=== PATIENT | female | born 1950 | race Caucasian/White ===

== ENCOUNTER 2019-07-06 07:05 | Day surgery (SDC) | payer MEDICARE, OTHER ==
[~2019-07-06] VITALS: Ht 157.5 cm; Wt 93.0 kg
[~2019-07-06 07:05] MED LIST: Furosemide20 MG PO; LEVO-T125 MC1 PO; LEVSOD75 PO; MECL12.5 PO; OMEPRAZOLE MAGN20 MG PO; Prinivil10 MG PO
--- NOTE | 2019-07-06 07:34 | NUR ---
PT STATES SHE HAS TAKEN 40 MG PO PREDNISONE YESTERDAY AND TODAY.
--- NOTE | 2019-07-06 09:45 | NUR ---
PT BACK TO RECOVERY ROOM POST PROCEDURE. SITTING UP IN A RECLINER, ALERT AND ORIENTED. DENIES DISCOMFORT. BILATERAL RADIAL SITES WITH TR BANDS AND SPLINTS IN PLACE. CALL LIGHT IN REACH.
--- NOTE | 2019-07-06 10:33 | NUR ---
PT EATING BREAKFAST AND WATCHING TV. DENIES NEEDS. VSS, CALL LIGHT IN REACH. BILATERAL RADIAL SITES C/D/I, TR BANDS AND SPLINTS IN PLACE.
--- NOTE | 2019-07-06 11:30 | NUR ---
4 CC'S OF AIR HAVE BEEN REMOVED FROM EACH TR BAND IN 2CC INCREMENTS. NO BLEEDING OR HEMATOMAS NOTED AT EITHER RADIAL SITE. PT STATES SITES ARE MORE COMFORTABLE THEY ARE BEING DEFLATED. PT CONTINUES TO WATCH TV, CALL LIGHT IN REACH.
--- NOTE | 2019-07-06 12:15 | NUR ---
BILATERAL TR BANDSHAVE BEEN FULLY DEFLATED WITHOUT ANY BLEEDING OR SWELLING AT EITHER SITE. CLOTH DOT DRESSINGS AND SPLINTS IN PLACE. IV DC'D, CATH INTACT. PT VERBALIZED UNDERSTANDING OF DC INSTRUCTIONS AND FOLLOW UP INFO. OUT TO CAR VIA W/C.
== END 2019-07-06 16:21 | disposition home or self-care (01) ==
LOC: MHTC 07:05
DX: Z01.810 Encounter for preprocedural cardiovascular examination (principal); I35.0 Nonrheumatic aortic (valve) stenosis; I25.10 Atherosclerotic heart disease of native coronary artery without angina pectoris; Z88.0 Allergy status to penicillin
CPT/HCPCS: 93454; 99152; 99153; C1769; C1894; J1200; J1644; J1720; J2250; J3010; J7030; Q9967

== ENCOUNTER 2019-09-24 20:19 | Observation (INO) | payer MEDICARE, OTHER ==
[~2019-09-24] VITALS: Ht 154.9 cm; Wt 90.5 kg
[2019-09-24] MEDS ORDERED: CLOP75 PO (20:39)
[2019-09-24 20:54] LABS: BASOPHILS ABSOLUTE AUTO 0.05 K/mm3 (0.00-0.23); BASOPHILS PERCENT AUTO 1 % (0-2); EOSINOPHILS ABSOLUTE AUTO 0.79 K/mm3 (0.00-0.68); EOSINOPHILS PERCENT AUTO 10 % (0-6); Hematocrit 42.1 % (33.0-51.0); Hemoglobin 13.4 g/dL (11.5-16.0); IMMATURE GRAN ABSOLUTE AUTO 0.04 K/mm3 (0.00-0.10); IMMATURE GRAN PERCENT AUTO 1 % (0-1); LYMPHOCYTES ABSOLUTE AUTO 2.18 K/mm3 (0.84-5.20); LYMPHOCYTES PERCENT AUTO 26 % (21-46); MONOCYTES ABSOLUTE AUTO 0.52 K/mm3 (0.16-1.47); MONOCYTES PERCENT AUTO 6 % (4-13); Mean Corpuscular HGB 30.2 pg (26.0-34.0); Mean Corpuscular HGB Conc 31.8 g/dL (31.5-36.5); Mean Corpuscular Volume 95 fL (80-100); Mean Platelet Volume 9.9 fL (9.1-12.4); NEUTROPHILS ABSOLUTE AUTO 4.76 K/mm3 (1.96-9.15); NEUTROPHILS PERCENT AUTO 57 % (41-73); Platelet Count 153 K/mm3 (150-400); RDW Standard Deviation 48.5 fL (35.1-46.3); Red Blood Cell Count 4.43 M/mm3 (3.80-5.20); White Blood Cell Count 8.34 K/mm3 (4.00-11.30)
[2019-09-24 21:15] LABS: Alanine Aminotransfer (ALT/SGP 16 U/L (12-78); Albumin, Blood 3.4 g/dL (3.4-5.0); Albumin/Globulin Ratio 0.8 (0.8-1.8); Alk Phos 91 U/L (50-136); Anion Gap 4 mmol/L (6-16); Aspartate Aminotrans (AST/SGOT 14 U/L (12-37); Bilirubin, Total 0.3 mg/dL (0.1-1.0); Blood Urea Nitrogen 9 mg/dL (8-24); CO2, Blood 26 mmol/L (21-32); Calcium, Blood 9.2 mg/dL (8.5-10.1); Chloride, Blood 112 mmol/L (98-108); Creatinine, Blood 0.75 mg/dL (0.40-1.00); Globulin, Blood 4.5 g/dL (2.2-4.0); Glomerular Filtration Rate >60 (60-); Glucose, Blood 103 mg/dL (70-99); Potassium, Blood 3.9 mmol/L (3.5-5.5); Sodium, Blood 142 mmol/L (136-145); Total Protein, Blood 7.9 g/dL (6.4-8.2); Troponin I 0.272 ng/mL (0.000-0.040)
[2019-09-25 01:39] LABS: Source, Urine Clean Catch
[2019-09-25 01:47] LABS: Appearance, Urine Clear (Clear); Blood, Urine 4+ (Neg); Color, Urine Amber (P-Yellow); Glucose Qualitative, Urine Neg (Neg); Ketones, Urine 1+ (Neg); Leukocyte Esterase, Urine 1+ (Neg); Nitrite, Urine Pos (Neg); Protein, Urine 2+ (Neg); Specific Gravity, Urine 1.025 (1.003-1.022); Urobilinogen, Urine 1+ (Normal)
[2019-09-25 01:52] LABS: Bilirubin, Urine 1+ (Neg)
[2019-09-25 01:53] LABS: Bacteria Many /hpf; Mucus Heavy (0-Heavy); Red Blood Cells, Urine 0-2 /hpf (0-2); Squamous Epithelial Cells Many /hpf (Few); White Blood Cells, Urine 25-50 /hpf (0-5)
[2019-09-25] MEDS ORDERED: ASPI81CH PO (02:51)
--- NOTE | 2019-09-25 04:28 | NUR ---
DR Camp notified of positive UA only 20 ml urine. to review, C & S pending.
[2019-09-25 04:49] LABS: BASOPHILS ABSOLUTE AUTO 0.06 K/mm3 (0.00-0.23); BASOPHILS PERCENT AUTO 1 % (0-2); EOSINOPHILS ABSOLUTE AUTO 0.92 K/mm3 (0.00-0.68); EOSINOPHILS PERCENT AUTO 11 % (0-6); Hematocrit 41.4 % (33.0-51.0); Hemoglobin 12.8 g/dL (11.5-16.0); IMMATURE GRAN ABSOLUTE AUTO 0.05 K/mm3 (0.00-0.10); IMMATURE GRAN PERCENT AUTO 1 % (0-1); LYMPHOCYTES ABSOLUTE AUTO 2.39 K/mm3 (0.84-5.20); LYMPHOCYTES PERCENT AUTO 27 % (21-46); MONOCYTES PERCENT AUTO 6 % (4-13); Mean Corpuscular HGB 29.2 pg (26.0-34.0); Mean Corpuscular HGB Conc 30.9 g/dL (31.5-36.5); Mean Corpuscular Volume 95 fL (80-100); Mean Platelet Volume 10.6 fL (9.1-12.4); NEUTROPHILS ABSOLUTE AUTO 4.81 K/mm3 (1.96-9.15); NEUTROPHILS PERCENT AUTO 55 % (41-73); Platelet Count 159 K/mm3 (150-400); RDW Coefficient Variation 14.2 % (11.7-14.2); RDW Standard Deviation 49.1 fL (35.1-46.3); Red Blood Cell Count 4.38 M/mm3 (3.80-5.20); White Blood Cell Count 8.73 K/mm3 (4.00-11.30)
[2019-09-25 05:10] LABS: Alanine Aminotransfer (ALT/SGP 19 U/L (12-78); Albumin, Blood 3.2 g/dL (3.4-5.0); Albumin/Globulin Ratio 0.7 (0.8-1.8); Alk Phos 87 U/L (50-136); Anion Gap 3 mmol/L (6-16); Aspartate Aminotrans (AST/SGOT 17 U/L (12-37); Bilirubin, Total 0.3 mg/dL (0.1-1.0); Blood Urea Nitrogen 11 mg/dL (8-24); Bun/Creatinine Ratio 16.7 (12.0-20.0); CO2, Blood 26 mmol/L (21-32); Calcium, Blood 8.9 mg/dL (8.5-10.1); Chloride, Blood 113 mmol/L (98-108); Creatinine, Blood 0.66 mg/dL (0.40-1.00); Globulin, Blood 4.4 g/dL (2.2-4.0); Glomerular Filtration Rate >60 (60-); Glucose, Blood 103 mg/dL (70-99); Sodium, Blood 142 mmol/L (136-145); Total Protein, Blood 7.6 g/dL (6.4-8.2)
[2019-09-25 05:12] LABS: CPK Creatine Kinase 75 U/L (26-193)
--- NOTE | 2019-09-25 05:53 | NUR ---
69 year old Female with TIA sx at home while watching TV with rt arm weakness arrives to floor with some speech slurring & she has a foam corner of rt mouth when drinking water. Alert active ambulates self to bathroom to void x 2 . First void only 20 ml cloudy celi urine sent for UA with C & S pending. 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. See card in chart for valve replacement. PT is lifeline smoker quit for 5 years but continues to smoke 3 cigarettes daily. She has hx of [place] plasy with baseline lt facial droop. PT has very dark eyes & difficult to assess pupilary reaction. Hx of vetigo & had steroid taper in last 3 months. Phoned MD to discuss positive UA. HAd positive troponin in ER & serial troponins continue.
[2019-09-25 06:37] LABS: CPK Creatine Kinase 67 U/L (26-193)
--- NOTE | 2019-09-25 13:13 | NUR ---
Echocardiogram using 9.0ml of Definity contrast performed.
--- NOTE | 2019-09-25 18:49 | NUR ---
SHIFT SUMMARY JAYANT'S NEURO CHECKS WERE NROMAL THIS SHIFT. DENIES UTI S/S. HAD ECHO AND CAROTID DOPLER. TELE SHOWING NSR. DENIED PAIN. INDEP IN ROOM. PLAN TO GO HOME TOMORROW AFTER ZIO MONITOR PLACED. WCTM
--- NOTE | 2019-09-26 06:47 | NUR ---
PT continues with no residual effect after TIA post TAVR placement 08/23/2019. PT willing to discuss tobacco addiction & stress related to widowhood & significant other causing stress. 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 Up & showered. Lorazapam at HS for restful nights sleep.
--- NOTE | 2019-09-26 09:10 | NUR ---
PT PLEASANT A/O X3. DENIES PAIN. STATES SOME OCC SILVER SPOTS IN FROMNT OF EYES. DR SONG NOTIFIED WHEN IN ROOM. H/R REG, NO MURMER NOTED. PER TELE NSR WITH [facility]. RATE 96. NO EVENTS. LUNGS CLEAR, RESP EASY, UNLABORED. ON R.A. BT X4 LAST BM PER PT TODAY. VOIDS INDEPENDANT TO BATHROOM. BED IN LOW POSITION, CALL LITE IN REACH, CALLS APPROP. STATES EXPECTS TO GO HOME TODAY. AFTER ZIOPATCH PLACEMENT.
[2019-09-26] MEDS ORDERED: AMLO5 PO (13:11)
[2019-09-26] MEDS ORDERED: ATOR80 PO (13:11)
--- NOTE | 2019-09-26 14:06 | NUR ---
DISCHARGE REVIEWED WITH PT. CHANGE ON LISINOPRIL CONFIRMED WITH DR SONG. KEEP ON PT HOME DOSE 5MG. TELE REMOVED AND ZIOPATCH PLACED BY H/C. RETURNED TELE TO PCU. IV REMOVED INTACT. PTVERBALIZED UNDERSTANDING OF MEDS AND INST
--- NOTE | 2019-09-26 15:46 | NUR ---
PT OUT DOOR WITH AIDE. AT [id number]
== END 2019-09-26 15:46 | disposition home or self-care (01) ==
LOC: ER 20:19 → MEDS 20:20
PROVIDERS: Emergency Medicine; ADMIT Internal Medicine
DX: G45.9 Transient cerebral ischemic attack, unspecified (principal); I35.0 Nonrheumatic aortic (valve) stenosis; Z95.2 Presence of prosthetic heart valve; I10 Essential (primary) hypertension; E03.9 Hypothyroidism, unspecified; K21.9 Gastro-esophageal reflux disease without esophagitis; Z88.0 Allergy status to penicillin; Z88.7 Allergy status to serum and vaccine; Z91.041 Radiographic dye allergy status; Z79.02 Long term (current) use of antithrombotics/antiplatelets; Z79.899 Other long term (current) drug therapy
CPT/HCPCS: 36415; 70450; 80053; 81001; 82550; 83690; 84484; 85025; 87077; 87086; 87186; 93005; 93010; 93306; 93880; 99285-25; A9270-GY; G0378

== ENCOUNTER → 2021-09-21 | Outpatient (CLI) | payer MEDICARE, OTHER ==
[~2021-09-21] MED LIST changes: +AMLO5 PO; +ASPI81CH PO; +ATOR80 PO; +CLOP75 PO
== END | disposition home or self-care (01) ==
LOC: LAB SHORT 12:13 → PLD 12:13
DX: N85.01 Benign endometrial hyperplasia (principal)
CPT/HCPCS: 88305

== ENCOUNTER 2021-11-19 08:15 | Day surgery (SDC) | payer MEDICARE, OTHER ==
[~2021-11-19] VITALS: Ht 157.5 cm; Wt 98.4 kg
[~2021-11-19 08:15] MED LIST changes: +BUTALB-ACETAMI1 EAC7 PO; +CLOBETASOL PROP59 ML TOP; +CYCL10 PO; +Diclofenac Sodi75 MG PO; +ELIQUIS5 M2 PO; +FAMO20 PO; +Norco 5-325 Ta1 EACH PO
[2021-11-19] MEDS ORDERED: ATOR80 PO (09:01)
[2021-11-19] MEDS ORDERED: LOSA25 PO (09:01)
[2021-11-19] MEDS ORDERED: Amlodipine Bes2.5 MG PO (09:02)
[2021-11-19] MEDS ORDERED: CLOP75 PO (09:02)
[2021-11-19] MEDS ORDERED: PROG100 PO (09:03)
--- NOTE | 2021-11-19 09:48 | NUR ---
History, Chart, Medications and Allergies reviewed before start of procedure.Patient confirms NPO status and agrees with scheduled surgery. Pre-Op teaching done. Pt verbalizes understanding. Patient States Post-Procedure ride home has been arranged.
--- NOTE | 2021-11-19 11:34 | NUR ---
11/19/21 1134 Stephenie Ballesteros PATIENT ON [place] PAD.
[2021-11-19 13:53] LABS: BASOPHILS ABSOLUTE AUTO 0.04 K/mm3 (0.00-0.23); BASOPHILS PERCENT AUTO 0 % (0-2); EOSINOPHILS ABSOLUTE AUTO 0.14 K/mm3 (0.00-0.68); EOSINOPHILS PERCENT AUTO 1 % (0-6); Hematocrit 43.1 % (33.0-51.0); Hemoglobin 13.8 g/dL (11.5-16.0); IMMATURE GRAN ABSOLUTE AUTO 0.05 K/mm3 (0.00-0.10); IMMATURE GRAN PERCENT AUTO 0 % (0-1); LYMPHOCYTES ABSOLUTE AUTO 1.75 K/mm3 (0.84-5.20); LYMPHOCYTES PERCENT AUTO 12 % (21-46); MONOCYTES ABSOLUTE AUTO 0.27 K/mm3 (0.16-1.47); MONOCYTES PERCENT AUTO 2 % (4-13); Mean Corpuscular HGB 29.7 pg (26.0-34.0); Mean Corpuscular Volume 93 fL (80-100); NEUTROPHILS ABSOLUTE AUTO 13.02 K/mm3 (1.96-9.15); NEUTROPHILS PERCENT AUTO 85 % (41-73); Platelet Count 156 K/mm3 (150-400); RDW Coefficient Variation 14.5 % (11.7-14.2); Red Blood Cell Count 4.64 M/mm3 (3.80-5.20); White Blood Cell Count 15.27 K/mm3 (4.00-11.30)
--- NOTE | 2021-11-20 03:58 | NUR ---
SHIFT SUMMARY A/O X4- POD1 LAP TO OPEN HYSTER. DRESSING FOR ABDOMINAL INCISION ACROSS LOWER ABDOMEN C/D/I, BINDER IN PLACE. LAP SITES C/D/I. ARZATE REMAINS IN PLACE. PAIN MANAGED W/ PO PAIN MEDICATIONS. MEDICATED PER EMAR FOR GAS PAIN. PLAN TO GET PT OUT OF BED AND INTO CHAIR THIS AM. VITAL SIGNS STABLE. WILL CONTINUE TO MONITOR AND REPORT TO ONCOMING RN.
[2021-11-20 06:03] LABS: BASOPHILS ABSOLUTE AUTO 0.03 K/mm3 (0.00-0.23); BASOPHILS PERCENT AUTO 0 % (0-2); EOSINOPHILS ABSOLUTE AUTO 0.01 K/mm3 (0.00-0.68); EOSINOPHILS PERCENT AUTO 0 % (0-6); Hematocrit 37.4 % (33.0-51.0); Hemoglobin 12.1 g/dL (11.5-16.0); IMMATURE GRAN ABSOLUTE AUTO 0.06 K/mm3 (0.00-0.10); IMMATURE GRAN PERCENT AUTO 0 % (0-1); LYMPHOCYTES ABSOLUTE AUTO 1.87 K/mm3 (0.84-5.20); LYMPHOCYTES PERCENT AUTO 12 % (21-46); MONOCYTES ABSOLUTE AUTO 0.83 K/mm3 (0.16-1.47); MONOCYTES PERCENT AUTO 5 % (4-13); Mean Corpuscular HGB 29.7 pg (26.0-34.0); Mean Corpuscular HGB Conc 32.4 g/dL (31.5-36.5); Mean Corpuscular Volume 92 fL (80-100); Mean Platelet Volume 10.3 fL (9.1-12.4); NEUTROPHILS PERCENT AUTO 83 % (41-73); Platelet Count 170 K/mm3 (150-400); RDW Coefficient Variation 14.2 % (11.7-14.2); RDW Standard Deviation 47.7 fL (35.1-46.3); Red Blood Cell Count 4.07 M/mm3 (3.80-5.20)
--- NOTE | 2021-11-20 18:03 | NUR ---
REPORTS PAIN ADEQUATELY CONTROLLED WITH PO MEDS. PAIN IS MAINLY IN LLQ AND LEFT SIDED BACK AREA. ABD BINDER IN PLACE, ABD INCISION WITH DRESSING DRY AND INTACT. PT UP TO BATHROOM WITH WALKER AND SAT UP IN CHAIR. PT HOPING TO DISCHARGE HOME WITH FAMILY IN AM. LIBBY PO FOOD AND FLUIDS WITHOUT NAUSEA
--- NOTE | 2021-11-21 04:02 | NUR ---
SHIFT SUMMARY A/O X4- IND W/ WALKER IN THE ROOM. POD2 LAP TO OPEN HYSTER. PAIN MANAGED W/ PO PAIN MEDICATIONS. TOLERATING PO INTAKE. VOIDING WELL. VITAL SIGNS STABLE. PLEASANT AND COOPERATIVE W/ CARE. WILL CONTINUE TO MONITOR AND REPORT TO ONCOMING RN.
[2021-11-21 05:38] LABS: BASOPHILS ABSOLUTE AUTO 0.06 K/mm3 (0.00-0.23); BASOPHILS PERCENT AUTO 1 % (0-2); EOSINOPHILS PERCENT AUTO 2 % (0-6); Hematocrit 34.5 % (33.0-51.0); Hemoglobin 11.2 g/dL (11.5-16.0); IMMATURE GRAN ABSOLUTE AUTO 0.04 K/mm3 (0.00-0.10); IMMATURE GRAN PERCENT AUTO 0 % (0-1); LYMPHOCYTES ABSOLUTE AUTO 2.42 K/mm3 (0.84-5.20); LYMPHOCYTES PERCENT AUTO 23 % (21-46); MONOCYTES ABSOLUTE AUTO 0.65 K/mm3 (0.16-1.47); MONOCYTES PERCENT AUTO 6 % (4-13); Mean Corpuscular HGB 29.9 pg (26.0-34.0); Mean Corpuscular HGB Conc 32.5 g/dL (31.5-36.5); Mean Corpuscular Volume 92 fL (80-100); Mean Platelet Volume 10.2 fL (9.1-12.4); NEUTROPHILS ABSOLUTE AUTO 7.07 K/mm3 (1.96-9.15); NEUTROPHILS PERCENT AUTO 68 % (41-73); Platelet Count 152 K/mm3 (150-400); RDW Coefficient Variation 14.6 % (11.7-14.2); RDW Standard Deviation 49.3 fL (35.1-46.3); Red Blood Cell Count 3.75 M/mm3 (3.80-5.20); White Blood Cell Count 10.44 K/mm3 (4.00-11.30)
--- NOTE | 2021-11-21 13:11 | NUR ---
L SHOULDER PAIN PT COMPLAINING OF L SHOULDER, CHEST AND BACK PAIN. PER PT THIS STARTED WHEN SHE WAS GETTING OOB FREQUENTLY, SHE THINKS IT IS FROM PULLING ON THE SIDE RAILS WHEN TRYING TO GET OOB. SHE REPORTS DR. MARIA IS AWARE BUT REPORTS THE PAIN IS PERSISTANT DESPITE USE OF PAIN MEDICATION. CALL PLACED TO DR. MARIA AT 1310, AWAITING RETURN PHONE CALL.
[2021-11-21] MEDS ORDERED: OXAYDO5 M1 PO (13:23)
[2021-11-21] MEDS ORDERED: MOTRIN IB200 MG PO (13:24)
--- NOTE | 2021-11-21 14:36 | NUR ---
UPDATED DR. MARIA PT REPORTS PAIN TO L SHOULDER, BACK AND CHEST AREA IS UNCHANGED. SHE FEELS IT IS FROM GETTING OOB. DR. MARIA RETURNED CALL AND WAS NOTIFIED AT 1400. PLAN TO CONTINUE WITH PLAN FOR DISCHARGE. PT EDUCATED TO MONITOR PAIN AND TO RETURN TO THE ER IF PAIN WORSENS. DR. MARIA CLARIFIED THAT IT IS OK FOR PT TO RESTART HER ELIQUIS AND THAT IT IS OK TO TAKE ADVIL INTERMETTENLY FOR BREAKTHROUGH PAIN.
--- NOTE | 2021-11-21 16:18 | NUR ---
DISCHARGE PT PROVIDED WITH WRITTEN AND VERBAL DISCHARGE INSTRUCTIONS, SHE AND HER DAUGHTER REPORTED UNDERSTANDING. PRESCRIPTION PROVIDED PRIOR TO DISCHARGE. MEDIPORE DRESSING REMOVED FROM INCISION SITE PER DR. MARIA'S INSTRUCTION. DRESSINGS SENT HOME AND PT INSTRUCTED TO ONLY USE IF DRAINAGE FROM THE INCISION SITE INCREASES. PT ASSISTED OUT IN W/C BY CLAUDETTE GOODWIN.
== END 2021-11-21 15:57 | disposition home or self-care (01) ==
LOC: ORSCMMR 08:15 → ORD 10:00 → SURS 14:58 → ORSCMMR 11-21 15:57
PROVIDERS: Obstetrics & Gynecology
PROC: 0UT24ZZ Resection of Bilateral Ovaries, Percutaneous Endoscopic Approach (ICD-10-PCS; principal; 2021-11-19 10:00)
PROC: 0UT94ZL Resection of Uterus, Supracervical, Percutaneous Endoscopic Approach (ICD-10-PCS; principal; 2021-11-19 10:00)
PROC: 0UT74ZZ Resection of Bilateral Fallopian Tubes, Percutaneous Endoscopic Approach (ICD-10-PCS; principal; 2021-11-19 10:00)
DX: R93.89 Abnormal findings on diagnostic imaging of other specified body structures (principal); N95.0 Postmenopausal bleeding; N73.6 Female pelvic peritoneal adhesions (postinfective); N80.0 Endometriosis of uterus; D25.9 Leiomyoma of uterus, unspecified; N83.299 Other ovarian cyst, unspecified side; N70.11 Chronic salpingitis; I10 Essential (primary) hypertension; J44.9 Chronic obstructive pulmonary disease, unspecified; F17.210 Nicotine dependence, cigarettes, uncomplicated; K21.9 Gastro-esophageal reflux disease without esophagitis; G62.9 Polyneuropathy, unspecified; E03.9 Hypothyroidism, unspecified; E66.9 Obesity, unspecified; Z68.39 Body mass index [BMI] 39.0-39.9, adult; Z86.73 Personal history of transient ischemic attack (TIA), and cerebral infarction without residual deficits; Z79.899 Other long term (current) drug therapy; G51.0 Bell's palsy
CPT/HCPCS: 36415; 76770; 85025; 88108; 88307; 94760; A9270; J0690; J1100; J1885; J2270; J2405; J2704; J3010; J7120